=== PATIENT | male | born 1970 | race Caucasian/White ===

== ENCOUNTER 2016-06-06 08:01 | Emergency (ER) | payer MEDICARE ==
[2016-06-06 08:41] LABS: HEMOGLOBIN 15.8 gm/dl (14.0-17.5); RED BLOOD COUNT 4.67 M/UL (4.20-5.50); WHITE BLOOD COUNT 10.4 K/UL (4.5-11.0)
[2016-06-06 09:05] LABS: BUN/CREATININE RATIO 27 (0-10)
== END 2016-06-06 13:49 | disposition home or self-care (01) ==
LOC: ER1 08:01
PROVIDERS: Physician Assistant
DX: R10.31 Right lower quadrant pain (principal); R11.2 Nausea with vomiting, unspecified; I10 Essential (primary) hypertension; I51.9 Heart disease, unspecified; Z90.49 Acquired absence of other specified parts of digestive tract; Z95.5 Presence of coronary angioplasty implant and graft; Z79.02 Long term (current) use of antithrombotics/antiplatelets; Z79.891 Long term (current) use of opiate analgesic; Z79.899 Other long term (current) drug therapy
CPT/HCPCS: 36415; 76870; 80053; 81001; 82150; 82550; 82553; 83690; 83874; 84484; 85025; 93005; 96361; 96365; 96375; 99284; J2270; J2405; J2550

== ENCOUNTER 2016-06-12 11:42 | Emergency (ER) | payer MEDICARE ==
[2016-06-12 12:08] LABS: HEMOGLOBIN 16.6 gm/dl (14.0-17.5); RED BLOOD COUNT 4.94 M/UL (4.20-5.50); WHITE BLOOD COUNT 13.7 K/UL (4.5-11.0)
[2016-06-12 12:23] LABS: BUN/CREATININE RATIO 9 (0-10)
== END 2016-06-12 15:10 | disposition home or self-care (01) ==
LOC: ER1 11:42
PROVIDERS: Emergency Medicine
DX: R10.31 Right lower quadrant pain (principal); R11.2 Nausea with vomiting, unspecified; R19.7 Diarrhea, unspecified; I25.2 Old myocardial infarction; I10 Essential (primary) hypertension; Z90.49 Acquired absence of other specified parts of digestive tract; Z79.02 Long term (current) use of antithrombotics/antiplatelets; Z79.891 Long term (current) use of opiate analgesic; Z79.899 Other long term (current) drug therapy
CPT/HCPCS: 36415; 80053; 81001; 82150; 83605; 83690; 85025; 96374; 96375; 99284; J1885; J2270; J2405; J7030

== ENCOUNTER 2016-08-13 23:59 | Emergency (ER) | payer MEDICARE ==
[2016-08-14] MEDS ORDERED: PLAVIX75 MG PO (21:36)
[2016-08-14] MEDS ORDERED: ZESTRIL20 MG PO (21:36)
[2016-08-14] MEDS ORDERED: LOPRESSOR50 MG PO (21:36)
[2016-08-14] MEDS ORDERED: LIPITOR10 MG PO (21:37)
[2016-08-14] MEDS ORDERED: NORCO 5-325 TA1 EACH PO (21:37)
[2016-08-14] MEDS ORDERED: KLONOPIN TAB 00.5 MG PO (21:38)
[2016-08-14] MEDS ORDERED: CYMBALTA30 MG PO (21:38)
[2016-08-14] MEDS ORDERED: REQUIP1 MG PO (21:38)
== END 2016-08-14 01:30 | disposition left against medical advice (07) ==
LOC: ER1 23:59
DX: Z53.21 Procedure and treatment not carried out due to patient leaving prior to being seen by health care provider (principal)

== ENCOUNTER 2016-08-14 13:29 | Observation (INO) | payer MEDICARE ==
[~2016-08-14] VITALS: Ht 193 cm; Wt 79.5 kg
[2016-08-14 14:16] LABS: HEMOGLOBIN 17.2 gm/dl (14.0-17.5); RED BLOOD COUNT 5.15 M/UL (4.20-5.50); WHITE BLOOD COUNT 20.2 K/UL (4.5-11.0)
[2016-08-14 14:37] LABS: BUN/CREATININE RATIO 14 (0-10)
[2016-08-14] MEDS ORDERED: ZESTRIL20 MG PO (21:36)
[2016-08-14] MEDS ORDERED: LOPRESSOR50 MG PO (21:36)
[2016-08-14] MEDS ORDERED: PLAVIX75 MG PO (21:36)
[2016-08-14] MEDS ORDERED: NORCO 5-325 TA1 EACH PO (21:37)
[2016-08-14] MEDS ORDERED: LIPITOR10 MG PO (21:37)
[2016-08-14] MEDS ORDERED: KLONOPIN TAB 00.5 MG PO (21:38)
[2016-08-14] MEDS ORDERED: CYMBALTA30 MG PO (21:38)
[2016-08-14] MEDS ORDERED: REQUIP1 MG PO (21:38)
[2016-08-15 10:13] LABS: HEMOGLOBIN 15.3 gm/dl (14.0-17.5); RED BLOOD COUNT 4.56 M/UL (4.20-5.50); WHITE BLOOD COUNT 8.1 K/UL (4.5-11.0)
[2016-08-15 10:53] LABS: BUN/CREATININE RATIO 16 (0-10)
== END 2016-08-15 18:04 | disposition home or self-care (01) ==
LOC: ER1 13:29 → M/S 18:20 → ZEROF 18:20 → M/S 21:26
PROVIDERS: Emergency Medicine; ADMIT Internal Medicine
DX: R10.31 Right lower quadrant pain (principal); R11.2 Nausea with vomiting, unspecified; I10 Essential (primary) hypertension; I25.2 Old myocardial infarction; D72.829 Elevated white blood cell count, unspecified; Z87.891 Personal history of nicotine dependence; Z79.02 Long term (current) use of antithrombotics/antiplatelets; Z79.899 Other long term (current) drug therapy
CPT/HCPCS: 36415; 80053; 81001; 82150; 83605; 83690; 85025; 87040; 93005; 96361; 96374; 96375; 96376; 99285; C9113; G0378; J2270; J2405; J2550; J7030; J7050; Q9962

== ENCOUNTER 2016-08-21 20:36 | Emergency (ER) | payer MEDICARE ==
[~2016-08-21 20:36] MED LIST: CYMBALTA30 MG PO; KLONOPIN TAB 00.5 MG PO; LIPITOR10 MG PO; LOPRESSOR50 MG PO; NORCO 5-325 TA1 EACH PO; PLAVIX75 MG PO; REQUIP1 MG PO; ZESTRIL20 MG PO
[2016-08-21 21:00] LABS: HEMOGLOBIN 16.7 gm/dl (14.0-17.5); RED BLOOD COUNT 4.98 M/UL (4.20-5.50); WHITE BLOOD COUNT 10.4 K/UL (4.5-11.0)
[2016-08-21 21:16] LABS: BUN/CREATININE RATIO 16 (0-10)
== END 2016-08-22 00:08 | disposition left against medical advice (07) ==
LOC: ER1 20:36
PROVIDERS: Family Medicine
DX: R10.9 Unspecified abdominal pain (principal); R19.7 Diarrhea, unspecified; R11.0 Nausea; Z87.891 Personal history of nicotine dependence; Z95.5 Presence of coronary angioplasty implant and graft
CPT/HCPCS: 36415; 80053; 81001; 82150; 83605; 83690; 85025; 96361; 96374; 99284; J2270; J2405

== ENCOUNTER 2016-08-23 19:08 | Emergency (ER) | payer MEDICARE | END 2016-08-24 00:03 | disposition home or self-care (01) | LOC: ER1 19:08 | DX: S30.0XXA Contusion of lower back and pelvis, initial encounter (principal); M54.41 Lumbago with sciatica, right side; I10 Essential (primary) hypertension; I25.10 Atherosclerotic heart disease of native coronary artery without angina pectoris; I25.2 Old myocardial infarction; Z90.49 Acquired absence of other specified parts of digestive tract; Z87.891 Personal history of nicotine dependence; Z79.02 Long term (current) use of antithrombotics/antiplatelets; Z79.82 Long term (current) use of aspirin; Z79.891 Long term (current) use of opiate analgesic; Z79.899 Other long term (current) drug therapy; W01.0XXA Fall on same level from slipping, tripping and stumbling without subsequent striking against object, initial encounter | CPT/HCPCS: 72128; 72131; 96374; 96375; 96376; 99284; J2270; J2405 ==